=== PATIENT | female | born 1965 | race Caucasian/White ===

== ENCOUNTER 2020-09-26 23:44 | Emergency (ER) | payer MEDICAID ==
[~2020-09-26] VITALS: Ht 152.4 cm; Wt 46.7 kg
[2020-09-27 00:22] LABS: *BILIRUBIN,URIN NEGATIVE (NEGATIVE); *BLOOD, URINE NEGATIVE (NEGATIVE); *CLARITY,URINE CLEAR (CLEAR); *COLOR,URINE YELLOW (YELLOW); *KETONES,URINE NEGATIVE (NEGATIVE); *UROBILINOGEN,URINE 0.2 E.U./dl (NORMAL); LEUKOCYTE ESTERASE ,URINE NEGATIVE (NEGATIVE); NITRITE, URINE NEGATIVE (NEGATIVE); PH,URINE 5.5 (5.0-8.0); UGLUCOSE NEGATIVE (NEGATIVE)
--- NOTE | 2020-09-27 00:22 | NUR ---
MD Fuentes with patient to do MSE.
--- NOTE | 2020-09-27 00:43 | NUR ---
Patient discharged to home in stable condition. Written and verbal after care instructions given. Patient verbalizes understanding of instructions. Stressed follow up or return to ER for worsening s/s.
[2020-09-27 00:44] VITALS: BP 110/63
== END 2020-09-27 00:44 | disposition home or self-care (01) ==
LOC: ER 23:56
DX: N30.10 Interstitial cystitis (chronic) without hematuria (principal)
CPT/HCPCS: 87086; A4663

== ENCOUNTER 2021-06-08 17:25 | Emergency (ER) | payer MEDICAID ==
[~2021-06-08] VITALS: Ht 154.9 cm; Wt 46.3 kg
[2021-06-08 17:46] LABS: *BILIRUBIN,URIN NEGATIVE (NEGATIVE); *BLOOD, URINE NEGATIVE (NEGATIVE); *CLARITY,URINE CLEAR (CLEAR); *COLOR,URINE YELLOW (YELLOW); *KETONES,URINE TRACE (NEGATIVE); *UROBILINOGEN,URINE 0.2 E.U./dl (NORMAL); LEUKOCYTE ESTERASE ,URINE NEGATIVE (NEGATIVE); NITRITE, URINE NEGATIVE (NEGATIVE); PH,URINE 5.5 (5.0-8.0); UGLUCOSE NEGATIVE (NEGATIVE)
[2021-06-08 17:55] LABS: BACTERIA,URINE FEW /HPF (NONE SEEN); RBC,URINE 0-3 /HPF (0-3); WBC,URINE 0-3 /HPF (0-3)
[2021-06-08 17:56] LABS: MUCUS,URINE FEW /LPF (0-FEW); SQUAMOUS EPITHELIAL CELL,UR FEW /HPF (NONE SEEN)
--- NOTE | 2021-06-08 18:30 | NUR ---
Female district administrator accompanied female patient for (Dr Kam).
[2021-06-08 18:48] LABS: HEMATOCRIT 39.4 % (31.2-41.9); MEAN CORPUSCULAR HEMOGLOBIN 29.2 uug (24.7-32.8); MEAN CORPUSCULAR VOLUME 86.3 fL (75.5-95.3); PLATELET COUNT (AUTO) 342 K/uL (179-408)
[2021-06-08 18:53] LABS: CREATININE 0.8 mg/dL (0.6-1.3); POTASSIUM 3.5 mmol/L (3.5-5.1)
[2021-06-08 18:59] LABS: BILIRUBIN,TOTAL 0.9 mg/dL (0.2-1.0); TOTAL PROTEIN, SERUM 7.7 g/dL (6.4-8.2)
--- NOTE | 2021-06-08 19:05 | NUR ---
Nursing SBAR given to SEBASTIAN Gonsales and SEBASTIAN Woodward. Patient is waiting for results and disposition.
--- NOTE | 2021-06-08 19:24 | NUR ---
pt awake alert denies pain, I called ER MD to review results as all results are available.
--- NOTE | 2021-06-08 19:36 | NUR ---
Dr. Ferguson in room speaking with the pt.
[2021-06-08] MEDS ORDERED: FLUC200T8 PO (19:57)
--- NOTE | 2021-06-08 20:01 | NUR ---
Patient discharged to home in stable condition. Written and verbal after care instructions given. Patient verbalizes understanding of instructions. Stressed follow up or return to ER for worsening s/s. All results lab etc were provided to the pt.
[2021-06-08 20:04] VITALS: BP 109/76
== END 2021-06-08 20:05 | disposition home or self-care (01) ==
LOC: ER 17:26
DX: N34.2 Other urethritis (principal); Z88.0 Allergy status to penicillin
CPT/HCPCS: 36415; 85025; 87210; A4663